=== PATIENT | male | born 1995 | race Caucasian/White ===

== ENCOUNTER 2019-10-13 11:10 | Emergency (ER) | payer BC, SELFPAY ==
--- NOTE | ~2019-10-13 | XR_ITS ---
EXAMINATION: XR hand LT min 3V DATE: 10/13/2019 11:33 INDICATION: Pain at the third and fourth digits and metacarpals post forward fall onto open hand. TECHNIQUE: Posteroanterior, oblique and lateral views of the left hand were obtained. COMPARISON: None. FINDINGS: Alignment is normal. No fracture. Joint spaces are normal. Soft tissues are unremarkable. IMPRESSION: 1. Negative left hand radiographs. Reviewed, dictated and finalized at location A.
[2019-10-13 11:21] VITALS: BP 162/105; PULSE 79; RESP 18; TEMP 36.8; O2SAT 100
--- NOTE | 2019-10-13 11:24 | ED.UPPEXIN ---
HPI - Extremity Injury (Upper) General Chief Complaint: Extremity Injury, Upper Stated Complaint: left wrist/hand pain Time Seen by Provider: 10/13/19 11:24 Source: patient and RN notes reviewed History of Present Illness HPI narrative: Patient is a 24-year-old male who presents the urgent care with complaints of left hand and wrist pain. Patient states that yesterday he was wrestling a friend while standing up and fell forward, catching himself with his left hand. Patient states that he is having pain of the 2 left middle fingers extending all the way to the wrist. Patient has not used anything [id number] for pain. Patient is right-hand dominant. No other acute complaints. No acute distress noted. Patient read the plan of care. Related Data Allergies Allergy/AdvReac Type Severity Reaction Status Date / Time No Known Allergies Allergy Mild Verified 10/13/19 11:34 Review of Systems Review of Systems: Narrative: CONSTITUTIONAL: Denies fever, chills, or sweats. EYES: Denies visual changes, redness, or discharge. ENT: Denies rhinorrhea, congestion, sore throat, or otalgia. CARDIOVASCULAR: Denies chest pain, palpitations, or edema. RESPIRATORY: Denies cough or dyspnea. GASTROINTESTINAL: Denies abdominal pain, nausea, vomiting, or diarrhea. GENITOURINARY: Denies dysuria or hematuria. SKIN: Denies rash or itching. MUSCULOSKELETAL: Reports of left hand and wrist pain due to fall NEUROLOGIC: Denies headache, numbness, or weakness. All other systems reviewed are negative, except as documented in HPI. PMFSH Comments At the time of my signature, I reviewed and agree with the nursing past medical, surgical, social, and family history. There is no relevant family history pertinent to the patient complaint. Exam Narrative: Exam Narrative: GENERAL: This is a well-nourished, well-developed patient, in no apparent distress. HEAD: normocephalic, atraumatic. EYES: PERRL. Sclera clear/white. Vision is grossly intact. EARS: External ears normal NOSE: External nose normal with no obvious nasal discharge, nares without redness, no rhinorrhea. THROAT: Mucous membranes moist NECK: Neck supple SKIN: warm, intact with no suspicious lesions or rash, good texture and turgor. NEURO: awake, alert, and oriented to person, place and time. There were no obvious focal neurologic abnormalities. EXTREMITIES: Mild edema and ecchymosis noted to the third and fourth digit of the left hand extending into the dorsal aspect of the left hand. Left radial pulse positive and strong with capillary refill less than 2 seconds. Range of motion limited due to pain. No obvious deformity. Course Vital Signs Vital signs: Vital Signs Temperature 98.3 F 10/13/19 11:21 Pulse Rate 79 10/13/19 11:21 Respiratory Rate 18 10/13/19 11:21 Blood Pressure 162/105 H 10/13/19 11:21 Pulse Oximetry 100 10/13/19 11:21 Temperature 98.3 F 10/13/19 11:21 Pulse Rate 79 10/13/19 11:21 Respiratory Rate 18 10/13/19 11:21 Blood Pressure 162/105 H 10/13/19 11:21 Pulse Oximetry 100 10/13/19 11:21 Reviewed?patient is informed that they may have pre-hypertension or hypertension based on a blood pressure reading in the department. I recommend the patient call the primary care provider listed on their discharge instructions or a physician of their choice this week to arrange follow-up for further evaluation of possible pre-hypertension or hypertension. MDM - Extremity Injury (Upper) MDM Narrative Medical decision making narrative: Reviewed x-ray results with the patient. He is aware the x-ray did not show any fractures or abnormality. Advised the patient to use an Cuate wrap around the left hand for comfort and stability. Rest for 2 to 3 days without any strenuous activity or heavy lifting. Use ice and ibuprofen. Follow-up with your PCP within 2 to 5 days or for worsening symptoms or failure to improve. Differential Diagnosis Differential diagnosis: Likely sp
== END 2019-10-13 11:45 | disposition home or self-care (01) ==
PROVIDERS: Emergency Provider Nurse Practitioner Family
DX: S63.502A Unspecified sprain of left wrist, initial encounter (principal); S66.912A Strain of unspecified muscle, fascia and tendon at wrist and hand level, left hand, initial encounter; W19.XXXA Unspecified fall, initial encounter; Y93.83 Activity, rough housing and horseplay
CPT/HCPCS: 73130; 99203; G0463

== ENCOUNTER 2021-03-06 14:15 | Emergency (ER) | payer OTHER, SELFPAY ==
--- NOTE | ~2021-03-06 | XR_ITS ---
EXAMINATION: XR foot LT min 3V DATE: 03/06/2021 14:47 INDICATION: Left foot injury and pain. TECHNIQUE: 4 views of left foot were obtained. COMPARISON: None. FINDINGS: There is an oblique fracture of metaphysis of fifth proximal phalanx. The distal fracture f ragment demonstrates 16 degrees lateral angulation, one cortical width plantar displacement, and 7 de grees dorsal angulation. There is an oblique fracture of diaphysis and metaphysis of fourth proximal phalanx in near-anatomic alignment. Joint spaces are normal. IMPRESSION: 1. Oblique fractures of fourth and fifth proximal phalanges. Reviewed, dictated and finalized at location A. [facility]
[2021-03-06 14:24] VITALS: BP 148/94; PULSE 104; RESP 16; TEMP 37.4; O2SAT 98
--- NOTE | 2021-03-06 15:28 | ED.LOWEXIN ---
HPI - Extremity Injury (Lower) General Chief Complaint: Extremity Injury, Lower Stated Complaint: Toe Injury/ Left Foot Source: patient Mode of arrival: ambulatory Limitations: no limitations History of Present Illness HPI Narrative: Patient is a 25-year-old male who presents with left fourth and fifth toe and foot pain. He reports running down steps and tripping and foot hitting wall. He denies other injuries. Reports tenderness with palpation, reports nonweightbearing at this time. Related Data Home Medications Medication Instructions Recorded Confirmed No Home Medications 03/06/21 03/06/21 Allergies Allergy/AdvReac Type Severity Reaction Status Date / Time No Known Allergies Allergy Mild Verified 03/06/21 14:32 Review of Systems Review of Systems: CONSTITUTIONAL: Denies fever, chills, or sweats. EYES: Denies visual changes, redness, or discharge. ENT: Denies rhinorrhea, congestion, sore throat, or otalgia. CARDIOVASCULAR: Denies chest pain, palpitations, or edema. RESPIRATORY: Denies cough or dyspnea. SKIN: Denies rash or itching. MUSCULOSKELETAL: Reports left foot pain NEUROLOGIC: Denies headache, numbness, dizziness, or weakness. PSYCHIATRIC: Denies anxiety or depression. Exam Narrative: GENERAL: Well-appearing, well-nourished, and in no acute distress. HEAD: Normocephalic, atraumatic. EYES: EOMI. No redness or drainage. Conjunctiva are normal. ENT: Mucous membranes pink and moist. CHEST: No respiratory distress. Clear to auscultation. HEART: Regular rate and rhythm. No murmur appreciated. Normal peripheral pulses. GI: Soft, nontender without rebound, or guarding. No distention. Bowel sounds normal in all quadrants. MUSCULOSKELETAL: No bony tenderness. EXTREMITIES: Normal range of motion. Tenderness with palpation to the base of left fourth and fifth toes, ecchymosis noted, edema noted SKIN: Warm, dry, no rash. NEURO: No focal deficits. Alert and oriented x3. Gait steady. PSYCH: Normal affect. No signs of depression or anxiety. Course Vital Signs Vital signs: Vital Signs Temperature 37.4 C 03/06/21 14:24 Pulse Rate 104 H 03/06/21 14:24 Respiratory Rate 16 03/06/21 14:24 Blood Pressure 148/94 H 03/06/21 14:24 Pulse Oximetry 98 03/06/21 14:24 Temperature 37.4 C 03/06/21 14:24 Pulse Rate 104 H 03/06/21 14:24 Respiratory Rate 16 03/06/21 14:24 Blood Pressure 148/94 H 03/06/21 14:24 Pulse Oximetry 98 03/06/21 14:24 At the time of signature, I have reviewed and agree with nursing past medical, surgical, social, and family history unless otherwise noted. Please see nursing chart for further information. There is no relevant family history pertinent to the presenting complaint. MDM - Extremity Injury (Lower) MDM Narrative Medical decision making narrative: Patient's x-ray shows fractures to left fourth and fifth phalanges. Patient too uncomfortable for postop shoe, posterior splint and crutches given. Patient ambulates without assistance. He denies chest pain or shortness of breath, follow-up given. Differential Diagnosis Differential diagnosis: Likely other (Sprain, strain, fracture, contusion) Imaging Data Radiologist's impression: ITS Impressions Foot X-Ray 03/06/21 15:00 IMPRESSION: 1. Oblique fractures of fourth and fifth proximal phalanges. Critical Care Time Critical Care Time Critical Care Time: No Discharge Plan Discharge Clinical Impression: Fracture of one or more phalanges of foot Patient Disposition: Home, Self-Care Condition: Stable Instructions: Toe Fracture (ED) Additional Instructions: Follow-up with podiatry as recommended. Nonweightbearing until follow-up with podiatry. Rest, ice and elevate foot. You may take Tylenol and ibuprofen as directed. Prescriptions: No Action No Home Medications RF: 0 Follow-up/Referrals: PHYSICIAN,UPKEEP WORKER [Primary Care Provider] - Stand Alone Forms:
== END 2021-03-06 15:54 | disposition home or self-care (01) ==
PROVIDERS: Emergency Provider Nurse Practitioner
DX: S92.512A Displaced fracture of proximal phalanx of left lesser toe(s), initial encounter for closed fracture (principal); W10.9XXA Fall (on) (from) unspecified stairs and steps, initial encounter
CPT/HCPCS: 29515; 73630; 99214; G0463

== ENCOUNTER 2021-08-11 08:59 | Emergency (ER) | payer OTHER, SELFPAY ==
[2021-08-11 09:04] VITALS: BP 152/95; PULSE 105; RESP 16; TEMP 36.9; O2SAT 99
--- NOTE | 2021-08-11 09:25 | ED.URI ---
HPI - URI/Sore Throat General Chief Complaint: Upper Respiratory Infection Stated Complaint: sore throat and ear pain Time Seen by Provider: 08/11/21 09:26 Source: patient and RN notes reviewed Mode of arrival: ambulatory Limitations: no limitations History of Present Illness HPI Narrative: 26-year-old male presents with concern for 2-week history of nasal congestion, rhinorrhea, cough. Reports over the past several days he has developed right ear pain. Reports he is taken ibuprofen without relief. He denies drainage from the ear or hearing changes. Denies fever, bodies, chills, sweats. MD elicited complaint: cough, sore throat and other (Ear pain) Related Data Allergies Allergy/AdvReac Type Severity Reaction Status Date / Time No Known Allergies Allergy Mild Verified 03/06/21 14:32 Review of Systems Review of Systems: CONSTITUTIONAL: Reports malaise. Denies chills, sweats, or fever. EYES: Denies visual changes, redness, or discharge. ENT: Reports rhinorrhea, congestion, right otalgia and sore throat. CARDIOVASCULAR: Denies chest pain, palpitations, or edema. RESPIRATORY: Reports cough. Denies dyspnea. GASTROINTESTINAL: Denies abdominal pain, nausea, vomiting, diarrhea SKIN: Denies rash or itching. MUSCULOSKELETAL: Denies myalgia. NEUROLOGIC: Denies headache. All systems reviewed & are unremarkable except as noted in HPI and below PMFSH Comments At time of signature, agree with nursing past medical, surgical, social and family history. There is no relevant family history pertinent to the presenting complaint Exam Narrative: GENERAL: Well-appearing, well-nourished, and in no acute distress. HEAD: Normocephalic EYES: PERRLA, conjunctivae clear ENT: Nares clear, turbinates edematous and erythematous, clear discharge. Mucous membranes moist. Left TM pearly lopez with dull light reflex, right TM erythematous and bulging; no tragal tenderness. Oropharynx erythematous without lesions. Tonsils not enlarged and without exudate, no drooling, no hoarseness, no trismus, uvula midline. NECK: Supple. No lymphadenopathy CHEST: Clear to auscultation, breath sounds equal. No wheezing, rhonchi, rales, or stridor. No respiratory distress, speaks in full sentences. HEART: Regular rate and rhythm. No murmur heard. SKIN: Warm, dry, no rash. NEURO: Alert and oriented x3. PSYCH: Normal mood and affect Course Course Emergency Course: Patient is aware of diagnosis, understands and agrees to treatment plan. Anticipatory guidance given. Patient agrees to follow-up as directed and is aware of reasons to seek care at the emergency department. Portions of this record may have been created with voice recognition software Level of Care: Express Care Visit Vital Signs Vital signs: Vital Signs Temperature 98.4 F 08/11/21 09:04 Pulse Rate 105 H 08/11/21 09:04 Respiratory Rate 16 08/11/21 09:04 Blood Pressure 152/95 H 08/11/21 09:04 Pulse Oximetry 99 08/11/21 09:04 Temperature 98.4 F 08/11/21 09:04 Pulse Rate 105 H 08/11/21 09:04 Respiratory Rate 16 08/11/21 09:04 Blood Pressure 152/95 H 08/11/21 09:04 Pulse Oximetry 99 08/11/21 09:04 Reviewed. MDM - URI/Sore Throat MDM Narrative Medical decision making narrative: Differential diagnosis considered: Wilkerson virus, strep pharyngitis, allergic rhinitis, upper respiratory tract infection, sinusitis, rhinosinusitis, nasopharyngitis. viral pharyngitis, otitis media, otitis externa, pneumonia, bronchitis, viral cough syndrome, viral syndrome, and influenza. Exam findings show no acute concerns or changes; patient is non-toxic appearing and is in no distress. Patient is appropriate for outpatient treatment and follow-up. Lab Data Attestation: I reviewed the patient's lab results. Critical Care Time Critical Care Time Critical Care Time: No Discharge Plan Discharge Clinical Impression: Otitis media Qualifiers: Otitis media type: suppurative Chronicity: acute Lateralit
== END 2021-08-11 09:41 | disposition home or self-care (01) ==
PROVIDERS: Emergency Provider Nurse Practitioner
DX: H66.001 Acute suppurative otitis media without spontaneous rupture of ear drum, right ear (principal)
CPT/HCPCS: 99213; G0463

== ENCOUNTER 2021-08-19 15:41 | Emergency (ER) | payer OTHER, SELFPAY ==
[2021-08-19 15:50] VITALS: BP 154/94; PULSE 67; RESP 16; TEMP 36.6; O2SAT 99
--- NOTE | 2021-08-19 15:54 | ED.EAR ---
HPI - Ear Problem General Chief complaint: Ear Stated complaint: right ear - can't hear Time Seen by Provider: 08/19/21 15:54 Source: patient Mode of arrival: ambulatory Limitations: no limitations History of Present Illness HPI Narrative: Noah is a 26-year-old male patient presenting to the clinic today with complaints of decreased hearing in his right ear. He reports he was seen 2 Wednesdays ago and given a prescription for some amoxicillin for the right ear for a ear infection. He says that his ear no longer hurts but it feels full and has ringing and his ears at times. He denies any dizziness. Does have a cough and some runny nose. Related Data Allergies Allergy/AdvReac Type Severity Reaction Status Date / Time No Known Allergies Allergy Mild Verified 03/06/21 14:32 Review of Systems Review of Systems: Pertinent positives per HPI. Patient denies any fever, chills, rash, headache, visual changes, dizziness, sore throat, shortness of breath, chest pain, palpitations, nausea, vomiting, diarrhea, constipation, abdominal pain, or any urinary issues. PMFSH Comments At the time of my signature, I reviewed and agree with the nursing past medical, surgical, social, and family history. There is no relevant family history pertinent to the patient complaint. Exam Narrative: General: Well-developed, well nourished, in no apparent distress Head: Normocephalic, atraumatic Eyes: Pupils equally round and reactive to light bilaterally, EOM intact, sclera and conjunctive clear, no discharge, lids normal Ears: Left TMs intact and clear, right TM intact, bulging, opaque with fluid noted behind the ear, ear canals clear, no drainage, grossly hearing normal. Nose: Nares patent, no discharge, no inflammation, no sinus tenderness. Mouth: Oropharynx without lesions or masses, good dentition, MMM. Neck: Supple, trachea midline, no enlargement of anterior or posterior cervical nodes, no thyroid masses or goiter palpable. Cardio: Regular rate and rhythm, s1 and s2 normal, no murmur appreciated. Resp: Clear to auscultation bilaterally anteriorly and posteriorly, no rhonchi, rales, wheezing or rubs Course Course Emergency Course: Portions of this record may have been created with voice recognition software. Level of Care: Express Care Visit Vital Signs Vital signs: Vital signs reviewed Discharge Plan Discharge Clinical Impression: Acute dysfunction of right eustachian tube Acute serous otitis media Qualifiers: Laterality: right Recurrence: not specified as recurrent Qualified Code(s): H65.01 - Acute serous otitis media, right ear Patient Disposition: Home, Self-Care Condition: Stable Instructions: Earache (ED) Additional Instructions: Take prescription medications only as prescribed-prednisone as prescribed Increase fluids and stay well hydrated Tylenol/motrin for pain/fever Flonase and OTC antihistamines as directed May return to the clinic if symptoms worsen Go to the ED if you develop dehydration, weakness, lethargy, shortness of breath, or chest pain. Follow up with your PCP in 3-5 days if symptoms persist. Prescriptions: New prednisone 20 mg tablet 40 mg PO DAILY 5 Days Qty: 10 RF: 0 No Action cetirizine-pseudoephedrine [Zyrtec-D] 5-120 mg tablet extended release 12 hr 1 tablet PO Q12H PRN (Reason: nasal congestion) Qty: 12 RF: 0 amoxicillin 875 mg tablet 875 mg PO TID 10 Days Qty: 30 RF: 0 codeine-guaifenesin [Virtussin AC] 10-100 mg/5 mL liquid 5 ml PO Q6H PRN (Reason: cough) Qty: 120 RF: 0 fluticasone propionate [Flonase Allergy Relief] 50 mcg/actuation spray,suspension 2 spray NASAL DAILY 14 Days Qty: 15.8 RF: 0 Follow-up/Referrals: PHYSICIAN,ON AIR HOST [Primary Care Provider] - Time of Disposition: 15:58 Quality NIHSS Nursing Documentation ED NIHSS nursing documentation: reviewed/agree
== END 2021-08-19 16:03 | disposition home or self-care (01) ==
PROVIDERS: Emergency Provider Nurse Practitioner Family
DX: H69.91 Unspecified Eustachian tube disorder, right ear (principal); H65.01 Acute serous otitis media, right ear
CPT/HCPCS: 99213; G0463

== ENCOUNTER 2024-09-23 12:51 | Emergency (ER) | payer OTHER, SELFPAY ==
[2024-09-23 12:55] VITALS: BP 175/106; PULSE 106; RESP 20; TEMP 41.1; O2SAT 97
--- NOTE | 2024-09-23 13:14 | ED.ABDPAIN ---
HPI - Abdominal Pain General Chief Complaint: Fever Stated Complaint: abdomen pain/fever Source: patient Mode of arrival: ambulatory Limitations: no limitations History of Present Illness HPI narrative: Patient is a 29 year old male who presents to the clinic with complaints of sharp abdominal pain, fever, nausea, and vomiting x 1 day. He states that he got home from work last night at 5:00 p.m. and then the pain started. He is rating his pain a 7/10. He has not been taking anything over the counter. Denies any shortness of breath. Related Data Home Medications ?Medication ?Instructions ?Recorded ?Confirmed ?Last Taken ?Type No Home Medications 09/23/24 Unknown History Allergies Allergy/AdvReac Type Severity Reaction Status Date / Time No Known Allergies Allergy Mild Verified 09/23/24 13:02 Review of Systems Review of Systems: CONSTITUTIONAL: Denies body aches, chills, or sweats. Reports fever. EYES: Denies visual changes, redness, or discharge. ENT: Denies rhinorrhea, congestion, sore throat, or otalgia. CARDIOVASCULAR: Denies chest pain, palpitations, or edema. RESPIRATORY: Denies cough or dyspnea. GASTROINTESTINAL: Reports abdominal pain, nausea, and vomiting. Denies CVA Tenderness. GENITOURINARY: Denies dysuria or hematuria. SKIN: Denies rash, itching, or wounds. MUSCULOSKELETAL: Denies back pain, joint pain, or myalgia. NEUROLOGIC: Denies headache, numbness, tingling, or weakness. PSYCH: Denies depression or anxiety. All systems reviewed & are unremarkable except as noted in HPI and below PMFSH Comments At time of signature, I have reviewed and agree with nursing past medical, surgical, social and family history unless otherwise noted. Please see nursing chart for further information. There is no relevant family history pertinent to the presenting complaint. Exam Narrative: GENERAL: Well-appearing, well-nourished, and in no acute distress. HEAD: Normocephalic, atraumatic. EYES: PERRLA, conjunctivae clear, and EOMI. ENT: Mucous membranes moist. NECK: Supple. No lymphadenopathy CHEST: Speaks in full sentences. No respiratory distress. HEART: Regular rate and rhythm. ABDOMEN: Soft, flat, nondistended. Guarding with pain noted to LLQ and LUQ with palpation. No rebound tenderness or rigid. No pulsatile masses. Bowel sounds x4. Negative Fishman?s sign. No periumbilical tenderness. No Supra pubic tenderness or distension. Good femoral pulses bilaterally. No hernia noted. No scars or surface trauma. SKIN: Warm, dry, no rash. NEURO: Alert and oriented x3. PSYCH: Normal mood and affect Course Course Level of Care: Express Care Visit Vital Signs Vital signs: Vital Signs Temperature 106 F H 09/23/24 12:55 Pulse Rate 106 H 09/23/24 12:55 Respiratory Rate 20 09/23/24 12:55 Blood Pressure 175/106 H 09/23/24 12:55 Pulse Oximetry 97 09/23/24 12:55 Oxygen Delivery Room Air 09/23/24 12:55 Temperature 106 F H 09/23/24 12:55 Pulse Rate 106 H 09/23/24 12:55 Respiratory Rate 20 09/23/24 12:55 Blood Pressure 175/106 H 09/23/24 12:55 Pulse Oximetry 97 09/23/24 12:55 Oxygen Delivery Room Air 09/23/24 12:55 reviewed. Transfer Transfered to: [facility] Accepting physician: Dr. Guzman Transfer comments: Pt is agreeable to transfer. Requests transfer to [facility] via private vehicle. Risks of transportation reviewed with pt including injury, worsening of condition and . Patient will be driving. Report called to hospital, spoke with Sandi Berumen RN Pt is in stable condition at time of transfer. Advised to remain NPO and go directly to the hospital. MDM - Abdominal Pain MDM Narrative Medical decision making narrative: Discussed physical exam findings. Explained in depth the importance of transferring to an ER. Pt agreeable to plan. Patient chose [facility]. Differential Diagnosis Differential diagnosis: Likely abdominal pain, acute appendicitis, constipation, gastroenteritis, pancreatitis and small bowel obstruction Critical Care Time Critical Care Time Critical Care Time: No Discharge Plan Discharge Clinical Impression: Abdominal pain Qualifiers: Abdominal location: unspecified location Qualified Code(s): R10.9 - Unspecified abdominal pain Patient Disposition: Acute Care Hospital Condition: Stable Patient Language: Italian Prescriptions: No Action No Home Medications Follow-up/Referrals: PHYSICIAN,SOFT WATER MECHANIC [Primary Care Provider] -
== END 2024-09-23 13:25 | disposition short-term general hospital (02) ==
DX: R10.12 Left upper quadrant pain (principal); R10.32 Left lower quadrant pain
CPT/HCPCS: 99212; G0463

== ENCOUNTER 2024-12-18 14:46 | Emergency (ER) | payer SELFPAY ==
--- OUTSIDE RECORDS SUMMARY | 2024-12-18 14:48 | XMS_ITS | Clinical Summary ---
Author Organization [facility] Address [address] [place] [address] Phone Care Team Providers Care Workforce Consultant Name Role Phone Provider, None Primary Care Provider Unavailabl e Allergies No known active allergies Medications folic acid (FOLVITE) 1 MG Tablet Take 1 Tablet by mouth daily. 30 Tablet 11/05/2021 Active multiple vitami/antioxida nts (CERTAVITE/ANTIO XIDANTS) Tablet Take 1 Tablet by mouth daily. 0 11/05/2021 Active Thiamine Mononitrate (THIAMINE) 100 MG Tablet Take 1 Tablet by mouth daily. 30 Tablet 11/14/2021 Active Active Problems Problem Noted Date Diagnosed Date Alcohol abuse 11/04/2021 Drug use 11/04/2021 Gastrointestinal hemorrhage with melena 11/04/19 22 Family History Medical History Relation Name Comments Hypertension Father Cancer Maternal Grandmother Rectal Cancer Maternal Great-Grandfather C olon cancer Hypertension Mother Relation Name Status Comments Father Maternal Grandmother Maternal Great-Grandfather Mother Social History Tobacco Use Types Packs/Day Years Used Date Smoking Tobacco: Never Smokeless Tobacco: Never Alcohol Use Standard Drinks/Week Comments Yes 0 (1 standard drink = 0.6 oz pur e alcohol) 3-4 days a week Sexually Active Control Partners Comments Not Currently Sex and Gender Information Value Date Recorded Sex Assigned at Not on file 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 Gender Identity Not on file Sexual Orientation Not on file Last Filed Vital Signs Vital Sign Reading Time Taken Comments Blood Pressure 153/85 11/04/2021 2:35 PM CDT Pulse 76 11/04/2021 2:35 PM CDT Temperature 36.8 C (98.2 F) 11/04/2021 2:35 PM CDT Respiratory Rate 24 11/04/2021 2:35 PM CDT Oxygen Saturation 100% 11/04/2021 2: 35 PM CDT Inhaled Oxygen Concentration - - Weight 88.4 kg (194 lb 12.8 oz) 11/04/2021 9:55 AM CDT Height 182.9 cm (6') 11/04/2021 9:55 AM CDT Body Mass Index 26.42 11/04/2021 9:55 AM CDT Plan of Treatment Health Maintenance Due Date Last Done Comments Hepatitis C Virus (HCV) Screening 1994 Hepatitis B Immunization (1 of 3 - 19+ 3-dose series) 2013 Human Papillomavirus (HPV) Immunization (1 - 3-dose SCDM series) 2021 Influenza Immunization (#1) 2024 12/27/2017 SARS-COV-2 Immunization ( season) 2024 Respiratory Syncytial Virus (RSV) Immunization (Adult) (1 - 1-dose 75+ series) 2069 DTaP/Tdap/Td Immunization Discontinued 11/27/2017 TdaP Immunization Completed 11/27/2017 Meningococcal Immunization (ACWY) Aged Out No longer eligible based on patient's age to complete this topic Pneumococcal Immunization Combined Aged Out No longer eligible based on patient's age to complete this topic Rotavirus Immunization Aged Out No lo nger eligible based on patient's age to complete this topic Advance Directives * Full Code (Latest Code Status on File) Date Activated Date Inactivated Comments 11/03/2021 10:04 PM 11/04/2021 6:26 PM CPR-Full Jennifer tment: FULL ARREST: Attempt Resuscitation/CPR wit intubation and mechanical ventilation. PRE-ARREST: Use entire range of life support measures to stabilize the patient. Care Teams Workforce Consultant Relationship Specialty Start Date End Date Provider, None [place] PCP - General 02/02/20
--- OUTSIDE RECORDS SUMMARY | 2024-12-18 14:48 | XMS_ITS | Encounter Summary ---
Author Organization [facility] Address [address] [facility] 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 No / Unsure 02/02/2020 9:15 AM FREIGHT DISPATCHER documented as of this encounter Plan of Treatment Not on file documented as of this encounter Visit Diagnoses Not on filedocumented in this encounter Additional Health Concerns Infection Onset Date Last Indicated Resolved Time COVID - 19 02/02/2020 02/02/2020 03/01/2020 12:1 8 AM FREIGHT DISPATCHER COVID - 19 Confirmed 09/07/2021 09/07/2021 022 12:16 AM CDT COVID - 19 09/07/2021 09/07/2021 09/17/2021 12:1 6 AM CDT documented as of this encounter Care Teams Book Agent Relationship Specialty Start Date End Date Provider, None [place] PCP - General 02/02/20 documented as of this encounter
--- NOTE | 2024-12-18 15:00 | ED_ITS ---
HPI - Nausea/Vomiting/Diarrhea General Chief complaint: Nausea/Vomiting/Diarrhea Stated complaint: sick, throwing up Time Seen by Provider: 12/18/24 15:10 Source: patient Mode of arrival: ambulatory Limitations: no limitations History of Present Illness HPI Narrative: Noah is a 29-year-old male patient presenting to the clinic today with complaints of sharp aching right upper quadrant pain and nausea and vomiting since this morning. He reports he vomited 4 times today. Had called to work due to the illness. Rates his pain currently is 6/ 10 in the right upper quadrant. No past medical history or surgical history. Denies any fevers, chills, body aches. Last bowel movement was this morning and normal. Denies any diarrhea or blood in his stool. Related Data Home Medications ?Medication ?Instructions ?Recorded ?Confirmed ?Last Taken ?Type No Home Medications 09/23/24 12/18/24 U nknown History Allergies Allergy/AdvReac Type Severity Reaction Status Date / Time No Known Allergies Allergy Mild Verified 12/18/24 14:55 Review of Systems Review of Systems: Pertinent positives per HPI. Patient denies any fever, chills, rash, headache, visual changes, dizziness, cough, runny nose, sore throat, shortness of breath, chest pain, palpitations, diarrhea, constipation, or any urinary issues. PMFSH Comments At the time of my signature, I reviewed and agree with the nursing past medical, surgical, social, and family history. There is no relevant family history pertinent to the patient complaint. Exam Narrative: General: Well-developed, well nourished, in no apparent distress. Head: Normocephalic, atraumatic. Cardio: Regular rate and rhythm, s1 and s2 normal, no murmur appreciated. Resp: Clear to auscultation bilaterally, no rhonchi, rales, wheezing or rubs. Abdomen: Soft, pliable, bowel sounds present in all quadrants, right upper quadrant tender to palpation, no organomegly, no CVAT tenderness. Course Course Emergency Course: Portions of this record may have been created with voice recognition software. Level of Care: Express Care Visit Vital Signs Vital signs: Vital Signs Temperature 37.1 C 12/18/24 15:03 Pulse Rate 107 H 12/18/24 15:03 Respiratory Rate 18 12/18/24 15:03 Blood Pressure 159/90 H 12/18/24 15:03 Pulse Oximetry 98 12/18/24 15:03 Oxygen Delivery Room Air 12/18/24 15:03 Temperature 37.1 C 12/18/24 15:03 Pulse Rate 107 H 12/18/24 15:03 Respiratory Rate 18 12/18/24 15:03 Blood Pressure 159/90 H 12/18/24 15:03 Pulse Oximetry 98 12/18/24 15:03 Oxygen Delivery Room Air 12/18/24 15:03 Vital signs reviewed Transfer Transfered to: [facility] Transportation: Other (Private car) Accepting physician: Dr Quinn Transfer comments: Private car MDM - Nausea/Vomiting/Diarrhea MDM Narrative Medical decision making narrative: At the time of visit patient is resting comfortably on the exam table. Patient appears to be nontoxic. Complaints of sharp/aching right upper quadrant pain and nausea and vomiting since this morning. He reports he vomited 4 times today. Had called to work due to the illness. Rates his pain currently is 6/ 10 in the right upper quadrant. No past medical history or surgical history. Denies any fevers, chills, body aches. Last bowel movement was this morning and normal. Denies any diarrhea or blood in his stool. Plan: Patient is having right upper quadrant abdominal pain with tenderness to palpation-rates pain 6/10 currently. Does have associated nausea vomiting with his symptoms. Recommend transfer to the emergency room for further evaluation. Patient would like to go to [facility]. Contacted Jamie CORDON at [facility] and report was given for continuity care. Dr. Quinn accepts patient. Differential Diagnosis Differential diagnosis: Likely food poisoning, gastroenteritis, drug-induced nausea and vomiting, dehydration and other (Nausea, vomiting, right upper quadrant pain, cholecystitis, pancreatitis, gastritis) Discharge Plan Discharge Clinical Impression: Right upper quadrant abdominal pain, Acute nausea with nonbilious vomiting Patient Disposition: Acute Care Hospital Condition: Stable Patient Language: Persian Prescriptions: No Action No Home Medications Follow-up/Referrals: UNKNOWN,DOCTOR [Primary Care Provider] Time of Disposition: 15:27 Quality NIHSS Nursing Documentation ED NIHSS nursing documentation: reviewed/agree
[2024-12-18 15:03] VITALS: BP 159/90; PULSE 107; RESP 18; TEMP 37.1; O2SAT 98
== END 2024-12-18 15:35 | disposition short-term general hospital (02) ==
PROVIDERS: Emergency Provider Nurse Practitioner Family
DX: R10.11 Right upper quadrant pain (principal); R11.2 Nausea with vomiting, unspecified
CPT/HCPCS: 99212; G0463